=== PATIENT | male | born 1935 | race Caucasian/White ===

== ENCOUNTER 2023-01-07 13:59 | Outpatient (CLI) | payer MEDICARE ==
[~2023-01-07 13:59] MED LIST: ACET325T58 PO; ALLO100T PO; ATOR80TA PO; BISA-155 PO; CARB-395 PO; DILT240C95 PO; FINA5TAB11 PO; FLO0.4C PO; HYDR-3964 PO; LISI20TA28 PO; MAG-154; MELA3TAB39 PO; OMEG-167 PO; POLY17PO10 PO
[2023-01-07] MEDS ORDERED: APIX5TAB3 PO ×2 (17:39)
== END 2023-01-07 23:59 | disposition home or self-care (01) ==
LOC: VAS 13:59
PROVIDERS: ATTEND Family Medicine
DX: I82.412 Acute embolism and thrombosis of left femoral vein (principal); R60.0 Localized edema
CPT/HCPCS: 93971

== ENCOUNTER 2023-01-07 14:53 | Inpatient (IN) | payer MEDICARE ==
[~2023-01-07] VITALS: Ht 188 cm; Wt 85.0 kg
[2023-01-07] MEDS ORDERED: APIX5TAB3 PO ×2 (17:39)
[2023-01-07 18:28] LABS: BASOPHILS # (AUTO) 0.1 X10'3 (0-0.2); EOSINOPHILS # (AUTO) 0.5 X10'3 (0-0.9); EOSINOPHILS % (AUTO) 6.6 % (0-6); HEMATOCRIT 32.1 % (42.0-52.0); HEMOGLOBIN 10.7 g/dl (14.0-17.9); LYMPHOCYTES # (AUTO) 1.8 X10'3 (1.1-4.8); LYMPHOCYTES % (AUTO) 23.3 % (21-51); MEAN CORPUSCULAR HEMOGLOBIN 30.8 PG (27.0-31.0); MEAN CORPUSCULAR HGB CONC 33.3 g/dL (33.0-36.5); MEAN CORPUSCULAR VOLUME 92.3 FL (78-98); MEAN PLATELET VOLUME 8.5 FL (7.4-10.4); MONOCYTES # (AUTO) 0.8 X10'3 (0-0.9); NEUTROPHILS # (AUTO) 4.5 X10'3 (1.8-7.7); NEUTROPHILS % (AUTO) 58.1 % (42-75); PLATELET COUNT 347 X10'3 (140-440); RED BLOOD COUNT 3.48 X10'6 (4.70-6.10); RED CELL DISTRIBUTION WIDTH 15.6 % (11.5-14.5); WHITE BLOOD COUNT 7.8 X10'3 (4.5-11.0)
[2023-01-07 18:44] LABS: ALANINE AMINOTRANSFERASE 16 U/L (12-78); ALBUMIN 2.9 G/DL (3.4-5.0); ALBUMIN/GLOBULIN RATIO 0.8 (1.1-1.5); ALKALINE PHOSPHATASE 132 IU/L (46-116); ANION GAP 8 (8-16); ASPARTATE AMINO TRANSFERASE 22 U/L (10-37); BILIRUBIN,TOTAL 0.4 MG/DL (0.1-1.0); BLOOD UREA NITROGEN 25 MG/DL (7-18); BUN/CREATININE RATIO 26.9 (10.0-20.0); CALCIUM 9.1 MG/DL (8.5-10.1); CHLORIDE 106 MMOL/L (99-107); CREATININE 0.93 MG/DL (0.60-1.10); POTASSIUM 3.9 MMOL/L (3.5-5.1); SODIUM 141 MMOL/L (135-145); TOTAL CARBON DIOXIDE 27.4 MMOL/L (24-32); TOTAL PROTEIN 6.7 G/DL (6.4-8.2); eGFR 77 ML/MIN
[2023-01-07 18:51] LABS: MAGNESIUM 2.1 MG/DL (1.5-2.4)
[2023-01-07 18:53] LABS: GLUCOSE 91 MG/DL (70-104)
[2023-01-07 19:27] LABS: APTT 28 SECONDS (22-32)
[2023-01-07] MEDS ORDERED: iohexol 350MG/ML 100ml bottle IV ONE (19:57)
[2023-01-07] MEDS ORDERED: heparin 10,000 units/1 ML INJ IV ONE (20:12)
[2023-01-07] MEDS ORDERED: heparin 25,000 UNIT/250ml bag 250 ML IV PRN ×3 (20:15→21:23)
[2023-01-07] MEDS ORDERED: heparin 10,000 units/1 ML INJ IV PRN (20:25)
[2023-01-08] MEDS ORDERED: diphenhydrAMINE 25mg capsule PO PRN (02:45)
[2023-01-08] MEDS ORDERED: mag hydrox/Alum hydrox/simeth 30ml oral suspension PO PRN (02:45)
[2023-01-08] MEDS ORDERED: acetaminophen 650mg rectal suppository RC PRN (02:45)
[2023-01-08] MEDS ORDERED: dextrose 5%-1/2 normal saline 1,000 ML IV SCH (02:45)
[2023-01-08] MEDS ORDERED: magnesium hydroxide 30ml (MOM) UD suspension PO PRN (02:45)
[2023-01-08] MEDS ORDERED: ondansetron/PF 4mg/2ml inj IV PRN (02:45)
[2023-01-08] MEDS ORDERED: acetaminophen 325mg tablet PO PRN ×2 (02:45)
[2023-01-08] MEDS ORDERED: bisacodyl 10mg suppository rectal RC PRN (02:45)
[2023-01-08] MEDS ORDERED: diphenhydrAMINE 50 mg/ml inj IV PRN (02:45)
[2023-01-08] MEDS ORDERED: HYDROcodone/acetaminophen 5mg/325mg tablet PO PRN (02:45)
[2023-01-08] MEDS ORDERED: ondansetron 4mg rapidly disintigrating tab PO PRN (02:45)
[2023-01-08] MEDS ORDERED: morphine 2 MG/ML inj. syringe IV PRN (02:45)
[2023-01-08 03:13] LABS: BASOPHILS # (AUTO) 0.1 X10'3 (0-0.2); BASOPHILS % (AUTO) 0.9 % (0-1); EOSINOPHILS # (AUTO) 0.7 X10'3 (0-0.9); EOSINOPHILS % (AUTO) 9.6 % (0-6); HEMOGLOBIN 10.2 g/dl (14.0-17.9); LYMPHOCYTES # (AUTO) 2.1 X10'3 (1.1-4.8); LYMPHOCYTES % (AUTO) 30.5 % (21-51); MEAN CORPUSCULAR HEMOGLOBIN 31.2 PG (27.0-31.0); MEAN CORPUSCULAR HGB CONC 33.8 g/dL (33.0-36.5); MEAN CORPUSCULAR VOLUME 92.4 FL (78-98); MEAN PLATELET VOLUME 8.6 FL (7.4-10.4); MONOCYTES # (AUTO) 0.8 X10'3 (0-0.9); MONOCYTES % (AUTO) 11.1 % (2-12); NEUTROPHILS # (AUTO) 3.2 X10'3 (1.8-7.7); NEUTROPHILS % (AUTO) 47.9 % (42-75); PLATELET COUNT 312 X10'3 (140-440); RED BLOOD COUNT 3.25 X10'6 (4.70-6.10); RED CELL DISTRIBUTION WIDTH 15.8 % (11.5-14.5); WHITE BLOOD COUNT 6.8 X10'3 (4.5-11.0)
[2023-01-08 03:26] LABS: PHOSPHORUS 3.6 MG/DL (2.3-4.5)
--- NOTE | 2023-01-08 03:30 | NUR ---
unable to titrate heparin based on aptt due to lab rejecting sample. RN to draw another sample.
--- NOTE | 2023-01-08 04:30 | NUR ---
lab rejected aptt sample again, RN to redraw another sample. still unable to titrate heparin drip.
[2023-01-08] MEDS ORDERED: pantoprazole 40mg Tablet.DR PO SCH (07:30)
[2023-01-08] MEDS ORDERED: docusate sod 100mg capsule PO SCH (08:00)
[2023-01-08 11:35] VITALS: BP 171/82; PULSE 78; RESP 15; TEMP 98; O2SAT 98
[2023-01-08 15:00] VITALS: BP 139/57; PULSE 82; RESP 10; TEMP 97.5; O2SAT 100
--- NOTE | 2023-01-08 17:45 | NUR ---
Discharged to Home with instructions for follow up care. Family signed discharged instructions after instructions received.
[2023-01-08] MEDS ORDERED: temazepam 15mg capsule PO PRN (21:00)
== END 2023-01-08 17:18 | disposition home or self-care (01) | DRG 300 ==
LOC: ER 14:54 → ED HOLD 01-08 02:51 → PCU 3S 01-08 08:28
PROVIDERS: ADMIT Family Medicine; ATTEND Family Medicine
PROC: BW211ZZ Computerized Tomography (CT Scan) of Abdomen and Pelvis using Low Osmolar Contrast (ICD-10-PCS; principal; 2023-01-07)
DX: I82.422 Acute embolism and thrombosis of left iliac vein (principal); I13.0 Hypertensive heart and chronic kidney disease with heart failure and stage 1 through stage 4 chronic kidney disease, or unspecified chronic kidney disease; I50.32 Chronic diastolic (congestive) heart failure; K86.2 Cyst of pancreas; K86.1 Other chronic pancreatitis; G20 Parkinson's disease; Z66 Do not resuscitate; D64.9 Anemia, unspecified; E78.5 Hyperlipidemia, unspecified; M10.9 Gout, unspecified; N18.9 Chronic kidney disease, unspecified; N40.0 Benign prostatic hyperplasia without lower urinary tract symptoms; K81.9 Cholecystitis, unspecified; Z95.0 Presence of cardiac pacemaker
CPT/HCPCS: 36415; 71045; 74177; 80053; 83735; 83880; 84100; 85025; 85610; 85730; 86885; 86900; 86901; 99285; G0378; J1644; J3490; Q9967